=== PATIENT | male | born 1970 | race Caucasian/White ===

== ENCOUNTER → 2016-08-15 | Outpatient (CLI) | payer OTHER ==
--- NOTE | 2016-08-20 09:47 | SLEEP ---
DATE OF STUDY: 08/15/2016 This is a home sleep study. REFERRING: Shelbie Lyn D.O. The patient is ____ years old who weighs 259 pounds with a BMI of 36. Home sleep study was performed at [facility]. The total recording time was 482 minutes. During the night study, the patient had 4 obstructive apneas, no central or mixed apneas. There were 29 hypopneas. The patient's apnea-hypopnea index was 4 per hour with a supine index of 7.5 per hour. Average oxygen saturation was 92% with the lowest of 85%. 10.6 minutes were spent in oxygen saturation less than 90%. Mean heart rate was 55 beats per minute. IMPRESSION: 1. No clinically significant sleep disordered breathing. The patient's AHI was 4 per hour, mild positional increase seen. 2. Mild nocturnal hypoxia. RECOMMENDATIONS: 1. The patient would not qualify for CPAP. 2. Avoid supine sleep. 3. Weight loss is strongly advised. If clinical suspicion for sleep apnea is still high, then consider full in-lab polysomnogram. SALLY CÁRDENAS MD DR: DOUGLAS/sadia JOB#: [id number] / [id number] SHELBIE Dietrich DO
== END | disposition home or self-care (01) ==
LOC: RT 08:09
PROVIDERS: ATTEND Family Medicine
DX: G47.33 Obstructive sleep apnea (adult) (pediatric) (principal)
CPT/HCPCS: G0399